=== PATIENT | male | born 1955 | race African-American/Black ===

== ENCOUNTER 2016-03-09 10:00 | Emergency (ER) | payer MEDICAID ==
[~2016-03-09] VITALS: Ht 180.3 cm; Wt 90.0 kg
[~2016-03-09 10:00] MED LIST: ATOR80TA PO; AZOR5TAB4 PO; BACT800T5 PO; CEPH500C3 PO; CYCL1PAK PO; GLUCTAB PO; IBUP800T23 PO; METO50TA PO; NAPR250T57 PO; PROT40TA PO
[2016-03-09 10:02] VITALS: BP 157/89; PULSE 96; RESP 14; TEMP 97.7; O2SAT 97
[2016-03-09] MEDS ORDERED: ATOR1TAB18 PO (10:18)
[2016-03-09] MEDS ORDERED: NAPR250T57 PO (10:18)
[2016-03-09] MEDS ORDERED: PROT40TA PO (10:18)
[2016-03-09] MEDS ORDERED: METF500T PO (10:18)
[2016-03-09] MEDS ORDERED: BACT800T5 PO (10:30)
--- NOTE | 2016-03-09 10:31 | PD ---
HPI Chief Complaint: Skin Problem Time Seen by Provider: 10:28 Travel History International Travel<30 days: No Contact w/Intl Traveler<30days: No Traveled to known affect area: No History of Present Illness HPI 52-year-old male with a history diabetes hypertension presents emergent department complaining of a infection to his left leg. Her for couple weeks. Plans himself. His are draining more work purulent drainage is morning. He is increased redness and pain on the left leg for the past couple days. Otherwise has been feeling generally well and healthy. Denies any other new or worsening symptoms. No fevers or chills. 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 No acute distress. SKIN: Warm and dry. CARDIOVASCULAR: Warm and well perfused. RESPIRATORY: Normal rate and effort. MUSCULOSKELETAL: The small nodule on the right knee with a little bit of inflammation around it. On the left leg is a nodule, little bit fluctuant, purulent drainage easily expressed. There is surrounding erythema redness tenderness and warmth. NEUROLOGICAL: Awake and alert. No gross deficits. Data Data Last Documented VS Vital Signs Date Time Temp Pulse Resp B/P Pulse Ox O2 Delivery O2 Flow Rate FiO2 03/09/16 10:02 97.7 96 14 157/89 97 Room Air [facility] Medical Decision Making Medical Screen Exam Complete: Yes Emergency Medical Condition: Yes Differential Diagnosis Abscess, cellulitis, other Narrative Course Medical decision making 60-year-old diabetic man with obvious draining abscess the left leg. Recommend antibiotics. Warm compresses. Diagnosis Primary Impression: Abscess of left leg Additional Instructions: Take Bactrim as prescribed. Apply warm compresses 4 times daily as discussed. Follow-up with your primary doctor in 2-3 days. Return to emergency department for any worsening pain redness swelling fevers or any other new or worsening symptoms. Med/Other Pt SpecificInfo: Prescription(s) given Scripts Sulfamethoxazole-Trimethoprim (Bactrim DS)800-160 Mg Tab1 Tab PO BID #14 TAB Ref 0 Prov:Landry Amaro MD 03/09/16 Disposition: 01 DISCHARGE HOME Condition: Stable Landry Amaro MD Mar 09, 2016 10:30
== END 2016-03-09 10:39 | disposition home or self-care (01) ==
LOC: NETRI 10:00
DX: L02.416 Cutaneous abscess of left lower limb (principal); E11.9 Type 2 diabetes mellitus without complications; I10 Essential (primary) hypertension; Z79.84 Long term (current) use of oral hypoglycemic drugs
CPT/HCPCS: 99283